=== PATIENT | female | born 1990 | race Hispanic/Latino ===

== ENCOUNTER 2021-02-13 17:31 | Emergency (ER) | payer SELFPAY ==
[~2021-02-13] VITALS: Ht 167.6 cm; Wt 107.1 kg
== END 2021-02-13 23:12 | disposition home or self-care (01) ==
LOC: ED 17:31
DX: R06.02 Shortness of breath (principal); Z00.8 Encounter for other general examination; J45.909 Unspecified asthma, uncomplicated; F17.200 Nicotine dependence, unspecified, uncomplicated
CPT/HCPCS: 71045; 80053; 80176; 81001; 84443; 84703; 85025; 99285-25

== ENCOUNTER 2022-02-27 19:49 | Emergency (ER) | payer OTHER ==
[~2022-02-27] VITALS: Ht 167.6 cm; Wt 141.0 kg
--- OUTSIDE RECORDS SUMMARY | 2022-02-27 22:42 | XMS ---
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 E.D. VISIT COUNT (12 MO.) 1 [facility] De Los [facility] TOTAL 1 NOTE: Visits indicate total known visits. ED/UCC VISIT TRACKING (12 MO.) 02/27/2022 19:49 [facility] [place] TYPE: Emergency COMPLAINT: - EAR PAIN INPATIENT VISIT TRACKING (12 MO.) No inpatient visits to display in this time frame [id number]
== END 2022-02-27 20:57 | disposition home or self-care (01) ==
LOC: ED 19:49
DX: H65.02 Acute serous otitis media, left ear (principal); J45.909 Unspecified asthma, uncomplicated; Z20.822 Contact with and (suspected) exposure to COVID-19
CPT/HCPCS: 87502; A9270; U0003

== ENCOUNTER 2022-03-13 20:11 | Emergency (ER) | payer OTHER ==
[~2022-03-13] VITALS: Ht 167.6 cm; Wt 140.6 kg
[2022-03-13] MEDS ORDERED: LATUDA60 MG PO (21:11)
[2022-03-13] MEDS ORDERED: CHLORPROMAZINE100 MG PO (21:11)
== END 2022-03-13 21:25 | disposition home or self-care (01) ==
LOC: ED 20:11
DX: R42 Dizziness and giddiness (principal); T43.3X5A Adverse effect of phenothiazine antipsychotics and neuroleptics, initial encounter; J45.909 Unspecified asthma, uncomplicated; F17.200 Nicotine dependence, unspecified, uncomplicated; Z79.899 Other long term (current) drug therapy
CPT/HCPCS: 99283

== ENCOUNTER 2022-10-19 04:26 | Emergency (ER) | payer OTHER ==
[~2022-10-19] VITALS: Ht 167.6 cm; Wt 137.0 kg
[~2022-10-19 04:26] MED LIST: CHLORPROMAZINE100 MG PO; LATUDA60 MG PO
--- OUTSIDE RECORDS SUMMARY | 2022-10-19 04:28 | XMS ---
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 - Patient with suicidal and/or homicidal ideations eloped. - Patient eloped with IV in place. Details: Patient LWOB. 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 [place] VISIT COUNT (12 MO.) 4 SAMUEL De Los Santos TOTAL 4 NOTE: Visits indicate total known visits. 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
[2022-10-19] MEDS ORDERED: ARIPIPRAZOLE5 MG PO (04:42)
[2022-10-19] MEDS ORDERED: LIDODERM1 EACH TOP (05:35)
== END 2022-10-19 05:45 | disposition home or self-care (01) ==
LOC: ED 04:26
DX: S39.012A Strain of muscle, fascia and tendon of lower back, initial encounter (principal); J45.909 Unspecified asthma, uncomplicated; F17.200 Nicotine dependence, unspecified, uncomplicated; Z79.899 Other long term (current) drug therapy; X58.XXXA Exposure to other specified factors, initial encounter; Y99.0 Civilian activity done for income or pay
CPT/HCPCS: 81003; 84703; 96372; 99283; J1885

== ENCOUNTER 2022-10-21 10:42 | Emergency (ER) | payer OTHER ==
[~2022-10-21] VITALS: Ht 170.2 cm; Wt 137.0 kg
[~2022-10-21 10:42] MED LIST changes: +ARIPIPRAZOLE5 MG PO; +LIDODERM1 EACH TOP
--- OUTSIDE RECORDS SUMMARY | 2022-10-21 10:44 | XMS ---
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 10/09/2022 10:52 - Patient eloped before treatment completed. - Patient with suicidal and/or homicidal ideations eloped. - Patient eloped with IV in place. Details: Patient LWOB. CRITERIA MET - [facility] - 2 Visits in 30 Days - [facility] CARE PROVIDERS -Leif- Dentist: Furniture Manager [facility] PHONE: [phone] DIVYA PAIZ Physician Psychology Assistant Current PHONE: Unknown NAHUM NOGUERA Community Health Worker 07/19/2020-Current PHONE: [phone] Niya has no Care Guidelines for this patient. [place] VISIT COUNT (12 MO.) 5 SAMUEL De Los Santos TOTAL 5 NOTE: Visits indicate total known visits. ED/UCC VISIT TRACKING (12 MO.) 10/21/2022 10:43 [facility] TYPE: Emergency COMPLAINT: - BACK PAIN 10/19/2022 04:26 [facility] TYPE: Emergency COMPLAINT: - MID LOW BACK PAIN DIAGNOSES: - Other shelter (current) drug therapy - Unspecified asthma, uncomplicated - Low back pain, unspecified - Civilian activity done for income or pay - Strain of muscle, fascia and tendon of lower back, initial encounter - Exposure to other specified factors, initial encounter - Nicotine dependence, unspecified, uncomplicated 10/09/2022 10:52 [facility] TYPE: Emergency COMPLAINT: - NAUSEA, ANXIETY, HEADACHE 03/13/2022 20:12 [facility] TYPE: Emergency COMPLAINT: - DIZZINESS DIAGNOSES: - Other shelter (current) drug therapy - Nicotine dependence, unspecified, uncomplicated - Unspecified asthma, uncomplicated - Dizziness and giddiness - Adverse effect of phenothiazine antipsychotics and neuroleptics, initial encounter 02/27/2022 19:49 [facility] TYPE: Emergency COMPLAINT: - EAR PAIN DIAGNOSES: - Otalgia, left ear - Unspecified asthma, uncomplicated - Acute serous otitis media, left ear - Contact with and (suspected) exposure to COVID-19 INPATIENT VISIT TRACKING (12 MO.) No inpatient visits to display in this time frame [id number]
[2022-10-21] MEDS ORDERED: PREDNISONE20 MG PO (12:48)
== END 2022-10-21 13:02 | disposition home or self-care (01) ==
LOC: ED 10:42
DX: M54.50 Low back pain, unspecified (principal); J45.909 Unspecified asthma, uncomplicated; F17.200 Nicotine dependence, unspecified, uncomplicated; Z79.899 Other long term (current) drug therapy
CPT/HCPCS: 96374; 99283-25; J1100

== ENCOUNTER 2023-04-27 16:41 | Emergency (ER) | payer OTHER ==
[~2023-04-27] VITALS: Ht 170.2 cm; Wt 137.0 kg
--- OUTSIDE RECORDS SUMMARY | ~2023-04-27 | XMS | Continuity of Care Document ---
Demographics + + + | Address | [address] | | | [place] [address] | + + + | Preferred Language | Unknown | + + + | Marital Status | Never | + + + | Hoahaoism Affiliation | Unknown | + + + | Race | Unknown | + + + | Ethnic Group | or | + + + Author + + + | Author | [employer] | + + + | Organization | [employer] | + + + | Address | [address] | | | [place] [address] | + + + | Phone | | + + + Care Team Providers + + + + | Care Yarn Rewinder Name | Role | Phone | + + + + Unavailable | Unavailable | + + + + Unavailable | Unavailable | + + + + Unavailable | Unavailable | + + + + Allergies No information. Encounters No information. Functional Status No information. Immunizations No information. Medications + + + + | date | description | facility | + + + + | 2022-10-19 00:00 | Lidocaine | [facility] | + + + + | 2022-03-16 00:00 | LURASIDONE HCL | [facility] | + + + + | 2022-10-09 00:00 | LURASIDONE HCL | [facility] | + + + + | 2022-10-21 00:00 | predniSONE | [facility] | + + + + | 2022-10-19 00:00 | ARIPIPRAZOLE | [facility] | + + + + | 2022-10-21 00:00 | ARIPIPRAZOLE | [facility] | + + + + | 2022-03-16 00:00 | CHLORPROMAZINE HCL | [facility] | + + + + | 2022-10-09 00:00 | CHLORPROMAZINE HCL | [facility] | + + + + Problems + + + + | date | description | facility | + + + + | 2022-02-27 00:00 | Acute serous otitis media | [facility] | | | of left ear | | + + + + | 2022-02-27 00:00 | Acute serous otitis media | [facility] | | | of left ear | | + + + + | 2022-03-13 00:00 | Adverse effect of drug | [facility] | + + + + | 2022-03-13 00:00 | Adverse effect of drug | [facility] | + + + + | 2022-10-09 00:00 | Patient left without being | [facility] | | | seen | | + + + + | 2022-10-19 00:00 | Strain of lumbar region | [facility] | + + + + | 2022-10-21 00:00 | Lumbar back pain | [facility] | + + + + | 2023-01-02 06:28 | DORSALGIA, UNSPECIFIED | [facility] | + + + + Procedures No information. Results/Labs +--------+--------+ +---------+--------+---------+ | test | date | facility | value | unit | notes | +--------+--------+ +---------+--------+---------+ + + | Result panel 1 | + + + + + + + + + | | 2022-02-27 | [facility] | NEGATIVE | (missing) | (missing) | | (unavailable | [facility]:20 [facility] | | | | + + + + + + + + + | Result panel 2 | + + + + + + + + + | | 2022-02-27 | [facility] | NEGATIVE | (missing) | (missing) | | (unavailable | [facility]:20 [facility] | | | | + + + + + + + + + | Result panel 3 | + + + + + + + + + | | 2022-02-27 | [facility] | NEGATIVE | (missing) | (missing) | | (unavailable | 20:20 [facility] | | | | + + + + + + + + + | Result panel 4 | + + + + + + + + + | | 2022-02-27 | [facility] | NEGATIVE | (missing) | (missing) | | (unavailable | 20:20 [facility] | | | | + + + + + + + + + | Result panel 5 | + + + + + + + + + | | 2022-02-27 | [facility] | NEGATIVE | (missing) | (missing) | | (unavailable | 20:20 [facility] | | | | + + + + + + + + + | Result panel 6 | + + + + + + + + + | | 2022-02-27 | [facility] | NEGATIVE | (missing) | (missing) | | (unavailable | 20:20 [facility] | | | | + + + + + + + + + | Result panel 7 | + + + + + + + + + | | 2022-02-27 | [facility] | NEGATIVE | (missing) | (missing) | | (unavailable | 20:20 [facility] | | | | + + + + + + + + + | Result panel 8 | + + + + + + + + + | | 2022-02-27 | [facility] | NEGATIVE | (missing) | (missing) | | (unavailable | 20:20 [facility] | | | | + + + + + + + + + | Result panel 9 | + + + + + + + + + | | 2022-10-19 | [facility] | YELLOW | (missing) | (missing) | | (unavailable | 04:35:08 [facility] | | | | + + + + + + + + + | Result panel 10 | + + + + + + + + + | | 2022-10-19 | [facility] | NORMAL | (missing) | (missing) | | (unavailable | 04:35:08 [facility] | | | | + + + + + + + + + | Result panel 11 | + + + + + + + + + | | 2022-10-19 | [facility] | NEGATIVE | (missing) | (missing) | | (unavailable | 04:35:08 [facility] | | | | + + + + + + + + + | Result panel 12 | + + + + + + + + + | | 2022-10-19 | [facility] | NEGATIVE | (missing) | (missing) | | (unavailable | 04:35:08 [facility] | | | | + + + + + + + + + | Result panel 13 | + + + + + + + + + | | 2022-10-19 | [facility] | NEGATIVE | (missing) | (missing) | | (unavailable | 04:35:08 [facility] | | | | + + + + + + + + + | Result panel 14 | + + + + + + + + + | | 2022-10-19 | [facility] | YELLOW | (missing) | (missing) | | (unavailable | 04:35:08 [facility] | | | | + + + + + + + + + | Result panel 15 | + + + + + + + + + | | 2022-10-19 | [facility] | SL CLOUDY | (missing) | (missing) | | (unavailable | 04:35:08 [facility] | | | | + + + + + + + + + | Result panel 16 | + + + + + + + + + | | 2022-10-19 | [facility] | NEGATIVE | (missing) | (missing) | | (unavailable | 04:35:08 [facility] | | | | + + + + + + + + + | Result panel 17 | + + + + + + + + + | | 2022-10-19 | [facility] | NEGATIVE | (missing) | (missing) | | (unavailable | 04:35:08 [facility] | | | | + + + + + + + + + | Result panel 18 | + + + + + + + + + | | 2022-10-19 | [facility] | NEGATIVE | (missing) | (missing) | | (unavailable | 04:35:08 [facility] | | | | + + + + + + + + + | Result panel 19 | + + + + + + + + + | | 2022-10-19 | [facility] | >=1.030 | (missing) | (missing) | | (unavailable | 04:35:08 [facility] | | | | + + + + + + + + + | Result panel 20 | + + + + + + + + + | | 2022-10-19 | [facility] | SL CLOUDY | (missing) | (missing) | | (unavailable | 04:35:08 [facility] | | | | + + + + + + + + + | Result panel 21 | + + + + + + + + + | | 2022-10-19 | [facility] | NEGATIVE | (missing) | (missing) | | (unavailable | 04:35:08 [facility] | | | | + + + + + + + + + | Result panel 22 | + + + + + +-------+ + + | | 2022-10-19 | [facility] | 5.5 | (missing) | (missing) | | (unavailable | 04:35:08 [facility] | | | | + + + +-------+ + + + + | Result panel 23 | + + + + + + + + + | | 2022-10-19 | [facility] | NEGATIVE | (missing) | (missing) | | (unavailable | 04:35:08 [facility] | | | | + + + + + + + + + | Result panel 24 | + + + + + + + + + | | 2022-10-19 | [facility] | NORMAL | (missing) | (missing) | | (unavailable | 04:35:08 [facility] | | | | + + + + + + + + + | Result panel 25 | + + + + + + + + + | | 2022-10-19 | [facility] | NEGATIVE | (missing) | (missing) | | (unavailable | 04:35:08 [facility] | | | | + + + + + + + + + | Result panel 26 | + + + + + + + + + | | 2022-10-19 | [facility] | NEGATIVE | (missing) | (missing) | | (unavailable | 04:35:08 [facility] | | | | + + + + + + + + + | Result panel 27 | + + + + + + + + + | | 2022-10-19 | [facility] | NEGATIVE | (missing) | (missing) | | (unavailable | 04:35:08 [facility] | | | | + + + + + + + + + | Result panel 28 | + + + + + + + + + | | 2022-10-19 | [facility] | NEGATIVE | (missing) | (missing) | | (unavailable | 04:35:08 [facility] | | | | + + + + + + + + + | Result panel 29 | + + + + + + + + + | | 2022-10-19 | [facility] | NEGATIVE | (missing) | (missing) | | (unavailable | 04:35:08 [facility] | | | | + + + + + + + + + | Result panel 30 | + + + + + + + + + | | 2022-10-19 | [facility] | NEGATIVE | (missing) | (missing) | | (unavailable | 04:35:08 [facility] | | | | + + + + + + + + + | Result panel 31 | + + + + + + + + + | | 2022-10-19 | [facility] | >=1.030 | (missing) | (missing) | | (unavailable | [facility]:35:08 [facility] | | | | + + + + + + + + + | Result panel 32 | + + + + + + + + + | | 2022-10-19 | [facility] | NEGATIVE | (missing) | (missing) | | (unavailable | [facility]:35:08 [facility] | | | | + + + + + + + + + | Result panel 33 | + + + + + +-------+ + + | | 2022-10-19 | [facility] | 5.5 | (missing) | (missing) | | (unavailable | [facility]:35:08 [facility] | | | | + + + +-------+ + + + + | Result panel 34 | + + + + + + + + + | | 2022-10-19 | [facility] | NEGATIVE | (missing) | (missing) | | (unavailable | [facility]35:08 [facility] | | | | + + + + + + + Social History No information. Vital Signs + + + +---------+ | date | measurement | value | units | + + + +---------+ | 2022-02-27 00:00 | BMI | 50.2 | kg/m2 | + + + +---------+ | 2022-02-27 00:00 | BP_diastolic | 82 | mmHg | + + + +---------+ | 2022-02-27 00:00 | BP_systolic | 130 | mmHg | + + + +---------+ | 2022-02-27 00:00 | heart_rate | 81 | /min | + + + +---------+ | 2022-02-27 00:00 | height_metric | 167.64 | cm | + + + +---------+ | 2022-02-27 00:00 | height_standard | 66 | in | + + + +---------+ | 2022-02-27 00:00 | o2_saturation | 97 | % | + + + +---------+ | 2022-02-27 00:00 | respiration_rate | 14 | /min | + + + +---------+ | 2022-02-27 00:00 | temperature_metric | 36.56 | C | | | | | | + + + +---------+ | 2022-02-27 00:00 | | 97.8 | F | | | temperature_standar | | | | | d | | | + + + +---------+ | 2022-02-27 00:00 | weight_metric | 141 | kg | + + + +---------+ | 2022-02-27 00:00 | weight_standard | 310.85 | lb | + + + +---------+ | 2022-03-13 00:00 | BMI | 50.0 | kg/m2 | + + + +---------+ | 2022-03-13 00:00 | BP_diastolic | 59 | mmHg | + + + +---------+ | 2022-03-13 00:00 | BP_systolic | 99 | mmHg | + + + +---------+ | 2022-03-13 00:00 | heart_rate | 110 | /min | + + + +---------+ | 2022-03-13 00:00 | height_metric | 167.64 | cm | + + + +---------+ | 2022-03-13 00:00 | height_standard | 66 | in | + + + +---------+ | 2022-03-13 00:00 | o2_saturation | 97 | % | + + + +---------+ | 2022-03-13 00:00 | respiration_rate | 19 | /min | + + + +---------+ | 2022-03-13 00:00 | temperature_metric | 36.61 | C | | | | | | + + + +---------+ | 2022-03-13 00:00 | | 97.9 | F | | | temperature_standar | | | | | d | | | + + + +---------+ | 2022-03-13 00:00 | weight_metric | 140.61 | kg | + + + +---------+ | 2022-03-13 00:00 | weight_standard | 309.99 | lb | + + + +---------+ | 2022-03-13 00:00 | weight_standard | 310 | lb | + + + +---------+ | 2022-10-09 00:00 | BMI | 50.0 | kg/m2 | + + + +---------+ | 2022-10-09 00:00 | BP_diastolic | 00 | mmHg | + + + +---------+ | 2022-10-09 00:00 | BP_systolic | 00 | mmHg | + + + +---------+ | 2022-10-09 00:00 | heart_rate | 00 | /min | + + + +---------+ | 2022-10-09 00:00 | height_metric | 167.64 | cm | + + + +---------+ | 2022-10-09 00:00 | height_standard | 66 | in | + + + +---------+ | 2022-10-09 00:00 | o2_saturation | 00 | % | + + + +---------+ | 2022-10-09 00:00 | respiration_rate | 00 | /min | + + + +---------+ | 2022-10-09 00:00 | temperature_metric | -17.78 | C | | | | | | + + + +---------+ | 2022-10-09 00:00 | | 0 | F | | | temperature_standar | | | | | d | | | + + + +---------+ | 2022-10-09 00:00 | weight_metric | 140.61 | kg | + + + +---------+ | 2022-10-09 00:00 | weight_standard | 310 | lb | + + + +---------+ | 2022-10-19 00:00 | BMI | 48.7 | kg/m2 | + + + +---------+ | 2022-10-19 00:00 | BP_diastolic | 61 | mmHg | + + + +---------+ | 2022-10-19 00:00 | BP_systolic | 130 | mmHg | + + + +---------+ | 2022-10-19 00:00 | heart_rate | 79 | /min | + + + +---------+ | 2022-10-19 00:00 | height_metric | 167.64 | cm | + + + +---------+ | 2022-10-19 00:00 | height_standard | 66 | in | + + + +---------+ | 2022-10-19 00:00 | o2_saturation | 97 | % | + + + +---------+ | 2022-10-19 00:00 | respiration_rate | 18 | /min | + + + +---------+ | 2022-10-19 00:00 | temperature_metric | 36.78 | C | | | | | | + + + +---------+ | 2022-10-19 00:00 | | 98.2 | F | | | temperature_standar | | | | | d | | | + + + +---------+ | 2022-10-19 00:00 | weight_metric | 137 | kg | + + + +---------+ | 2022-10-19 00:00 | weight_standard | 302.03 | lb | + + + +---------+ | 2022-10-21 00:00 | BMI | 47.3 | kg/m2 | + + + +---------+ | 2022-10-21 00:00 | BP_diastolic | 72 | mmHg | + + + +---------+ | 2022-10-21 00:00 | BP_systolic | 142 | mmHg | + + + +---------+ | 2022-10-21 00:00 | heart_rate | 68 | /min | + + + +---------+ | 2022-10-21 00:00 | height_metric | 170.18 | cm | + + + +---------+ | 2022-10-21 00:00 | height_standard | 67 | in | + + + +---------+ | 2022-10-21 00:00 | o2_saturation | 99 | % | + + + +---------+ | 2022-10-21 00:00 | respiration_rate | 16 | /min | + + + +---------+ | 2022-10-21 00:00 | temperature_metric | 36.67 | C | | | | | | + + + +---------+ | 2022-10-21 00:00 | | 98 | F | | | temperature_standar | | | | | d | | | + + + +---------+ | 2022-10-21 00:00 | weight_metric | 136.98 | kg | + + + +---------+ | 2022-10-21 00:00 | weight_standard | 301.99 | lb | + + + +---------+ | 2022-10-21 00:00 | weight_standard | 302 | lb | + + + +---------+"
--- OUTSIDE RECORDS SUMMARY | ~2023-04-27 | XMS | Continuity of Care Document ---
Demographics + + + | Address | [address] | | | [place] [address] | + + + | Preferred Language | Unknown | + + + | Marital Status | Never | + + + | Congregation Affiliation | Unknown | + + + | Race | Unknown | + + + | Ethnic Group | or | + + + Author + + + | Author | [facility] | + + + | Organization | [facility] | + + + | Address | [address] | | | [place] [address] | + + + | Phone | | + + + Care Team Providers + + + + | Care Service Desk Agent Name | Role | Phone | + [...] + | 2022-10-19 00:00 | Lidocaine | [facility] | + + + + | 2022-03-16 00:00 | LURASIDONE HCL | [facility] | + + + + | 2022-10-09 00:00 | LURASIDONE HCL | [facility] | + + + + | 2022-10-21 00:00 | predniSONE | [facility] | + + + + | 2022-10-19 00:00 | ARIPIPRAZOLE | [facility] | + + + + | 2022-10-21 00:00 | ARIPIPRAZOLE | [facility] | + + + + | 2022-03-16 00:00 | CHLORPROMAZINE HCL | [facility] | + + + + | 2022-10-09 00:00 | CHLORPROMAZINE HCL | [facility] | + + + + Problems + + + + | date | description | facility | + + + + | 2022-02-27 00:00 | Acute serous otitis media | [facility] | | | of left ear | | + + + + | 2022-02-27 00:00 | Acute serous otitis media | [facility] | | | of left ear | | + + + + | 2022-03-13 00:00 | Adverse effect of drug | [facility] | + + + + | 2022-03-13 00:00 | Adverse effect of drug | [facility] | + + + + | 2022-10-09 00:00 | Patient left without being | [facility] | | | seen | | + + + + | 2022-10-19 00:00 | Strain of lumbar region | [facility] | + + + + | 2022-10-21 00:00 | Lumbar back pain | [facility] | + + + + | 2023-01-02 [...]
[~2023-04-27 16:41] MED LIST changes: +PREDNISONE20 MG PO
[2023-04-27 17:57] LABS: INFLUENZA B NAA NEGATIVE (NEGATIVE); RESPIRATORY SYNCYTIAL VIR NAA NEGATIVE (NEGATIVE)
[2023-04-27 18:39] VITALS: BP 00/00
== END 2023-04-27 18:39 | disposition left against medical advice (07) ==
LOC: ED 16:41
PROVIDERS: Emergency Medicine
DX: U07.1 COVID-19 (principal); Z53.21 Procedure and treatment not carried out due to patient leaving prior to being seen by health care provider
CPT/HCPCS: 87502; C9803; U0002